=== PATIENT | male | born 1950 | race Caucasian/White ===

== ENCOUNTER 2022-12-18 05:53 | Day surgery (SDC) | payer MEDICARE, BC, SELFPAY ==
--- NOTE | 2022-12-18 | LES_PTH ---
PATIENT: ELIZ NEW LOC: U#:[id number] AGE/SX: 72/M ROOM: RE12/18/[address]: Dr. Joselyn Gustafson MD : 1950 BED: DIS: 12/18/2022 SPEC #: [id number] RECD: 12/18/22 10:21 STATUS: PATEL PERLA #: [id number] ALVAREZ: 12/18/22 00:[address]: Joselyn Gustafson DEPT: SURGICAL PATHOLOGY RECD BY: Alessandra Quarles ENTERED: 12/18/22 10:47 SP TYPE: Lesion OTHR DR: Dr. Karrie Florez MD Tissues: A - Skin of nose, NOS B - Skin of arm Procedures: Surgery Specimen Level III Surgery Specimen Level IV HEADER OPERATION: Excision lesion nose, excision subcutaneous mass upper arm PRE-OP DIAGNOSIS: Neoplasm of skin of nose TISSUE SUBMITTED: A ? Nose lesion, B ? Mass left upper arm MICROSCOPIC DIAGNOSIS A. Lesion of nose, biopsy: [place]. Folliculitis and perifolliculitis. Solar elastosis. B. Mass of left upper arm, excision: Epidermal inclusion cyst. AM:rhonda 12/21/2022 MICROSCOPIC DESCRIPTION Slides are reviewed. GROSS DESCRIPTION A - Received in fixative is one container labeled with the patient's name and designated nose lesion. The specimen consists of a piece of chaidez-white skin ellipse measuring 1.0 x 0.4 x 0.3 cm. The specimen is inked, serially sectioned and submitted entirely in one cassette. B - Received in fixative is one container labeled with the patient's name and designated mass left upper arm. The specimen consists of a piece of skin with underlying tissue. The skin piece measures 2.5 x 1.4 cm and the underlying tissue measures 2.0 x 2.0 x 1.5 cm. The specimen is inked, serially sectioned and reveals a cyst and underlying tissue filled with chaidez-white cheesy material. [place] [employer] sections are submitted in two cassettes. / SJ:rhonda 12/18/2022 TC:3 CPT: 79897, 10974
[2022-12-18 06:20] VITALS: BP 119/69; PULSE 78; RESP 16; TEMP 36.2; O2SAT 98; BMI 39.9
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
[2022-12-18] MEDS: Lidocaine 1% /Epi 1:100 9 ML, Sodium Bicarbonate 1 MEQ OPERA.SITE (08:30)
--- NOTE | 2022-12-18 09:16 | OP.PCM_ITS ---
Problems Associated Problem List Diagnoses (1) Neoplasm of uncertain behavior of connective and other soft tissue: (2) Neoplasm of uncertain behavior of skin of nose: Report of Operation Date of Procedure: 12/18/22 Pre-Operative Diagnosis: Neoplasm of left nose of uncertain behavior; subcutaneous mass left upper arm Post-Operative Diagnosis: Same Surgery/Procedure Performed:: Excision lesion left nose (1.0 cm); excision sub cutaneous mass left upper arm (5 cm) Surgeon: Joselyn Gustafson Type of Anesthesia: Local Specimen's removed: Same as above Description of Procedure: The patient was brought to the operating room and placed on the operating room table in the supine position. The nose and left upper arm are prepped and draped in the usual sterile fashion. 1% Xylocaine with epinephrine buffered with sodium bicarb is injected in the periphery of both sites. We initially began with excising the lesion of the nose. This is taken down full-thickness of skin. Hemostasis is controlled with cautery. The incision was then closed with a combination of interrupted silk suture as well as a running plain gut s uture. Dermabond and Steri-Strips were placed on the site. We then addressed the site on the left upper arm and after this is anesthetized, an elliptical incision is made over top of the mass and carried down through the subcutaneous tissue. The underlying cyst is then carefully dissected. It is completely removed. Hemostasis is controlled with cautery. The wound is then closed in layers using a 3-0 Monocryl in the subcutaneous tissue and dermis. Skin edges were approximated with a running Prolene suture. Xeroform gauze, 4 x 4, and Medipore tape were applied for dressing. He tolerated the procedure well was taken to the recovery area in an awake and stable condition. Needle and sponge counts are correct. Complications None
--- NOTE | 2022-12-18 09:21 | DCINST_ITS ---
Discharge Instructions Diet Discharge Diet: No restrictions Activity Additional Activity Instructions:: Keep your back elevated (recliner position) for the next 3-4 nights to reduce bleeding. Keep the Steri-Strips on your nose dry and do not remove until seen in the office. If the Steri-Strips should fall off, may apply a Band-Aid during the day if needed. On the arm, you may remove the dressing with showering and replace daily. Follow Up Care Please Follow Up With: Joselyn Gustafson MD When: 1 week - 10 days Test Results: Test results from this visit will be discussed in further detail at your follow- up appointment, if applicable. Discharge Plan Admission Attending Provider: Joselyn Gustafson Primary Care Provider: Karrie Florez Discharge Orders/Prescriptions Prescriptions: New cephalexin 500 mg capsule 500 mg PO BID 7 Days Qty: 14 0RF cephalexin 500 mg capsule 500 mg PO BID 7 Days Qty: 14 0RF No Action tamsulosin 0.4 mg capsule 0.4 mg PO DAILY hydrochlorothiazide 12.5 mg tablet 12.5 mg PO DAILY Referrals / Follow Up: Karrie Florez MD [Primary Care Provider] - Disposition Disposition (needs filled in before D/C Order can be placed): Home, Self Care
[2022-12-18 09:33] VITALS: BP 118/72; PULSE 80; RESP 18; TEMP 36.2; O2SAT 99
== END 2022-12-18 09:37 | disposition home or self-care (01) ==
PROVIDERS: PCP Family Medicine; Referring Provider Plastic Surgery; Visit Provider Plastic Surgery
PROC: (CPT 12032; principal; 2022-12-18 07:20)
DX: L70.0 Acne vulgaris (principal); Z87.891 Personal history of nicotine dependence; L72.0 Epidermal cyst; L57.8 Other skin changes due to chronic exposure to nonionizing radiation; L73.9 Follicular disorder, unspecified; L01.02 Bockhart's impetigo; D48.5 Neoplasm of uncertain behavior of skin; D48.1 Neoplasm of uncertain behavior of connective and other soft tissue
CPT/HCPCS: 12032; 12052; 88304; 88305